=== PATIENT | female | born 1995 | race Caucasian/White ===

== ENCOUNTER 2017-11-04 16:49 | Emergency (ER) | payer OTHER ==
[~2017-11-04] VITALS: Ht 167.6 cm; Wt 103.3 kg
[~2017-11-04 16:49] MED LIST: BACT800T5 PO; LEVO.025 PO; SULF-154 PO; TRAZ50TA78 PO
[2017-11-04 16:55] VITALS: BP 150/66; PULSE 110; RESP 18; TEMP 98.7; O2SAT 98
--- NOTE | 2017-11-04 17:13 | PD ---
HPI Chief Complaint: Skin Problem Time Seen by Provider: 17:04 Travel History International Travel<30 days: No Contact w/Intl Traveler<30days: No Traveled to known affect area: No History of Present Illness HPI 22-year-old female presents to emergency department with complaint of a lump and redness to the end of her tailbone 1 week. Does have history of an incision and drainage of a boil to that area many years ago. Reports history of MRSA. Reports subjective fever. Reports nausea and dry heaving and relates it to taking too much ibuprofen. Otherwise, denies vomiting. Rates pain 8/10. Worse with sitting, palpation to the area. Has been taking Flexeril and ibuprofen for symptom management. Some relief with ibuprofen. Allergies to latex. Denies significant past medical history other than genital herpes. No primary care provider. Has no other medical complaints. No other modifying factors or associated signs and symptoms. PFSH Past Medical History ADHD: No Arthritis: No Asthma: No Autoimmune Disease: No Anxiety: No Depression: Yes Heart Rhythm Problems: No Cancer: No Cardiovascular Problems: No High Cholesterol: No Chemotherapy: No Chest Pain: No Congestive Heart Failure: No COPD: No Cerebrovascular Accident: No Diabetes: No Diminished Hearing: No Endocrine: Yes GERD: No Genitourinary: No Headaches: Yes (occasional) Hiatal Hernia: No Immune Disorder: No Kidney Stones: No Musculoskeletal: No Neurologic: No Psychiatric: Yes (Depression, Self-Harm, Anxiety) Reproductive: No Respiratory: No Immunizations Current: Yes Migraines: No Radiation Therapy: No Renal Failure: No Seizures: No Sickle Cell Disease: No Sleep Apnea: No Thyroid Disease: Yes (hypothyroid) Ulcer: No ?: Not LMP: 3 MTHS NOT ACTIVE : 1 : 1 Past Surgical History Abdominal Surgery: No AICD: No Arteriovenous Shunt: No Cardiac Surgery: No Section: No Ear Surgery: No Endocrine Surgery: No Eye Surgery: No Genitourinary Surgery: No Gynecologic Surgery: No Insulin Pump: No Joint Replacement: No Oral Surgery: No Pacemaker: No Thoracic Surgery: No Other Surgery: Yes (AGE 10: LANCING OF MRSA INFECTION LEFT LEG UNDER ANESTHESIA) Family History Family Hypercholesterolemia: Yes (MOTHER) Social History Alcohol Use: Yes Tobacco Use: No Substance Use: Yes (THC and Opiates) Allergies-Medications (Allergen,Severity, Reaction): Coded Allergies: latex (Unverified Allergy, Severe, Hives, 11/04/17) Reported Meds & Prescriptions Reported Meds & Active Scripts Active Clindamycin (Clindamycin HCl) 150 Mg Cap 450 Mg PO Q6H 10 Days Tramadol (Tramadol HCl) 50 Mg Tab 50 Mg PO Q4H PRN Desyrel (Trazodone HCl) 50 Mg Tab 50 Mg PO HS PRN Septra Ds (Trimethoprim/Sulfamethoxazole) Tab 1 Tab PO BID Levothyroxine Sodium 25 Mcg Tab 25 Mcg PO DAILY@06 Bactrim DS (Sulfamethoxazole-Trimethoprim DS) 1 Tab Tab 1 Tab PO BID 7 Days Review of Systems Except as stated in HPI: all other systems reviewed are Neg Physical Exam Narrative GENERAL: Well-nourished, well-developed female patient, in no acute distress; afebrile, nontoxic-appearing SKIN: There is an indurated area to the coccyx which measures about 2 cm in diameter. It is fluctuant but there is no pointing or drainage. There is a zone of inflammation around it but no lymphangitis. HEAD: Atraumatic. Normocephalic. EYES: Pupils equal and round. No scleral icterus. No injection or drainage. ENT: Mucosa pink and moist. Airway patent. NECK: Trachea midline. CARDIOVASCULAR: Regular rate. RESPIRATORY: No accessory muscle use. GASTROINTESTINAL: Rounded. MUSCULOSKELETAL: No obvious deformities. No clubbing. No cyanosis. No edema. NEUROLOGICAL: Awake and alert. Oriented 3. No obvious cranial nerve deficits. Motor grossly within normal limits. Normal speech. PSYCHIATRIC: Appropriate mood and affect; insight and judgment normal. Data Data Last Documented VS Vital Signs Date Time Temp Pulse Resp B/P (MAP) Pulse Ox O2 Delivery O2 Flow Rate FiO2 11/04/17 16:55 98.7 110 18 150/66 (94) 98 Orders Orders Wound Culture And Gram Stain (11/04/17 17:13) Lidocaine Pf 1% Inj (Xylocaine-Mpf 1% In (11/04/17 17:15) Clindamycin (Cleocin) (11/04/17 18:00) Tramadol (Ultram) (11/04/17 18:00) Ed Discharge Order (11/04/17 17:49) MDM Medical Decision Making Medical Screen Exam Complete: Yes Emergency Medical Condition: Yes Medical Record Reviewed: Yes Differential Diagnosis Pilonidal abscess, pilonidal cyst, folliculitis, cellulitis Narrative Course 22-year-old female with pilonidal abscess. Patient is afebrile nontoxic pain. See my procedure note for incision and drainage. Instructed patient to return to the emergency department in 48 hours for packing removal and abscess recheck. Clindamycin and tramadol prescribed for home. Instructed patient to follow up with primary care provider. Patient verbalizes understanding and agreement with treatment plan. Patient is medically cleared and stable for discharge. Discussed reasons to return to the emergency department. Patient agrees with treatment plan. The patients vital signs are stable and the patient is stable for outpatient follow-up and treatment. Patient discharged home, stable and in no acute distress. Procedures Procedure Narrative INCISION AND DRAINAGE OF ABSCESS: The area was prepped and was sterilely draped. A subcutaneous wheal of 1 % Xylocaine with a total number 2 mL was used to anesthetize the area properly. A number 11 scalpel was used to make a 1 -cm incision across the area of the abscess. The abscess was drained, complex loculations were broken down, and irrigated with normal saline. Cultures were obtained. Quarter inch iodoform packing was placed in the wound. Sterile dressing applied. Patient advised to have packing removed in two days. Diagnosis Primary Impression: Pilonidal abscess Referrals: [facility] Primary Care Physician Patient Instructions: Abscess (ED), Abscess Follow-up (ED), Abscess Incision and Drainage (DC), General Instructions, Pilonidal Cyst (ED) Additional Instructions: Complete full course of antibiotics Warm compresses to the affected area Keep area clean and dry Ibuprofen or Tylenol as directed and as needed for pain and inflammation Return to emergency department in 48 hours for abscess packing removal Follow-up with primary care provider Return to emergency department immediately with worsening of symptoms Med/Other Pt SpecificInfo: Prescription(s) given Scripts Clindamycin (Clindamycin) 150 Mg Cap 450 MG PO Q6H for Infection for 10 Days, #120 CAP 0 Refills Prov: Yoana Vieyra 11/04/17 Tramadol (Tramadol) 50 Mg Tab 50 MG PO Q4H Y for PAIN, #10 TAB 0 Refills Prov: Yoana Vieyra 11/04/17 Disposition: 01 DISCHARGE HOME Condition: Stable Yoana Vieyra Nov 04, 2017 17:13
[2017-11-04] MEDS ORDERED: LIDOCAINE HCL 1% PF 30 ML VIAL INFIL ONE (17:15)
[2017-11-04] MEDS ORDERED: BACT800T5 PO (17:16)
[2017-11-04] MEDS ORDERED: TRAM50TA PO (17:16)
[2017-11-04] MEDS ORDERED: CLIN150C14 PO (17:49)
[2017-11-04] MEDS ORDERED: CLINDAMYCIN 150 MG CAP PO ONE (18:00)
[2017-11-04] MEDS ORDERED: traMADol HCL 50 MG TAB PO ONE (18:00)
== END 2017-11-04 18:21 | disposition home or self-care (01) ==
LOC: PHEFT 16:49
DX: L05.01 Pilonidal cyst with abscess (principal); E03.9 Hypothyroidism, unspecified; F32.9 Major depressive disorder, single episode, unspecified; F41.9 Anxiety disorder, unspecified; F12.90 Cannabis use, unspecified, uncomplicated; F11.90 Opioid use, unspecified, uncomplicated; Z86.14 Personal history of Methicillin resistant Staphylococcus aureus infection
CPT/HCPCS: 10080; 87070; 87205

== ENCOUNTER 2017-11-06 18:26 | Emergency (ER) | payer SELFPAY ==
[~2017-11-06 18:26] MED LIST changes: +CLIN150C14 PO; +TRAM50TA PO
[2017-11-06 18:32] VITALS: BP 142/72; PULSE 84; RESP 20; TEMP 98.4; O2SAT 98
--- NOTE | 2017-11-06 19:07 | PD ---
HPI Chief Complaint: Wound/Suture/Staple Re-Check Time Seen by Provider: 18:47 Travel History International Travel<30 days: No Contact w/Intl Traveler<30days: No Traveled to known affect area: No History of Present Illness HPI 22-year-old female here for packing removal. She had incision and drainage of a pilonidal cyst done on 11/04/17. She reports she has been taking antibiotics as prescribed. Per her report her symptoms are improving. No fever. She has continued but improved pain to the coccyx. Severity is moderate. Aggravated by direct pressure to the tailbone when sitting. Alleviated by offsetting weight by lying on her side. PFSH Past Medical History ADHD: No Arthritis: No Asthma: No Autoimmune Disease: No Anxiety: No Depression: Yes Heart Rhythm Problems: No Cancer: No Cardiovascular Problems: No High Cholesterol: No Chemotherapy: No Chest Pain: No Congestive Heart Failure: No COPD: No Cerebrovascular Accident: No Diabetes: No Diminished Hearing: No Endocrine: Yes GERD: No Genitourinary: No Headaches: Yes (occasional) Hiatal Hernia: No Immune Disorder: No Kidney Stones: No Musculoskeletal: No Neurologic: No Psychiatric: Yes (Depression, Self-Harm, Anxiety) Reproductive: No Respiratory: No Immunizations Current: Yes Migraines: No Radiation Therapy: No Renal Failure: No Seizures: No Sickle Cell Disease: No Sleep Apnea: No Thyroid Disease: Yes (hypothyroid) Ulcer: No Tetanus Vaccination: < 5 Years Influenza Vaccination: No ?: Not LMP: 3.5 months ago, normally irregular : 1 : 1 Past Surgical History Surgical History: No Previous Surgery Abdominal Surgery: No AICD: No Arteriovenous Shunt: No Cardiac Surgery: No Section: No Ear Surgery: No Endocrine Surgery: No Eye Surgery: No Genitourinary Surgery: No Gynecologic Surgery: No Insulin Pump: No Joint Replacement: No Oral Surgery: No Pacemaker: No Thoracic Surgery: No Other Surgery: Yes (AGE 10: LANCING OF MRSA INFECTION LEFT LEG UNDER ANESTHESIA) Family History Family Hypercholesterolemia: Yes (MOTHER) Social History Alcohol Use: No Tobacco Use: No Substance Use: No Allergies-Medications (Allergen,Severity, Reaction): Coded Allergies: latex (Verified Allergy, Severe, Hives, 11/06/17) Reported Meds & Prescriptions Reported Meds & Active Scripts Active Clindamycin (Clindamycin HCl) 150 Mg Cap 450 Mg PO Q6H 10 Days Review of Systems Except as stated in HPI: all other systems reviewed are Neg General / Constitutional: No: Fever Physical Exam Narrative GENERAL: Alert and well-appearing 22-year-old female SKIN: Warm and dry. Healing abscess to the right gluteal cleft. No surrounding cellulitis. Mild induration. packing is in place. HEAD: Normocephalic. EYES: No injection or drainage. NECK: Supple RESPIRATORY: No accessory muscle use. GASTROINTESTINAL: nondistended. MUSCULOSKELETAL: No cyanosis, or edema. BACK: Nontender without obvious deformity. No CVA tenderness. Data Data Last Documented VS Vital Signs Date Time Temp Pulse Resp B/P (MAP) Pulse Ox O2 Delivery O2 Flow Rate FiO2 11/06/17 18:32 98.4 84 20 142/72 (95) 98 MDM Medical Decision Making Medical Screen Exam Complete: Yes Emergency Medical Condition: Yes Differential Diagnosis Abscess, cellulitis, pilonidal cyst Narrative Course 22-year-old female here for packing removal. Packing was removed. The area appears to be healing well. She is nontoxic appearing. She is instructed to continue antibiotics as directed. Diagnosis Primary Impression: Abscess packing removal Referrals: Primary Care Physician Additional Instructions: Cleanse area daily by showering with soap and water. Continue antibiotics as directed. Return if you develop new or worsening symptoms. Disposition: 01 DISCHARGE HOME Condition: Stable Rajwinder Fatima Nov 06, 2017 19:07
== END 2017-11-06 19:26 | disposition home or self-care (01) ==
LOC: PHEFT 18:26
DX: Z48.00 Encounter for change or removal of nonsurgical wound dressing (principal); F32.9 Major depressive disorder, single episode, unspecified; F41.9 Anxiety disorder, unspecified; E03.9 Hypothyroidism, unspecified
CPT/HCPCS: 99281